=== PATIENT | female | born 1970 ===

== ENCOUNTER → 2020-12-18 | Outpatient (REF) ==
--- NOTE | 2020-12-19 01:51 | REPPI ---
INDICATION: DISABILITY DIANGOSIS DETERMINATION COMPARISON: None. TECHNIQUE: AP, lateral, coned-down views of the lumbar spine. FINDINGS: Three views of the lumbosacral spine demonstrate satisfactory alignment and lordosis without acute fracture / compression injury or subluxation. Endplate sclerosis, disc space narrowing, and facet hypertrophy noted at L5-S1. No further significant degenerative changes are appreciated. IMPRESSION: 1. No acute fracture / compression injury or subluxation. 2. Early moderate degenerative changes at L5-S1. <Electronically signed by Eyad Kearns > 12/19/20 0148
== END ==
LOC: M PLAIMG 13:26
PROVIDERS: ATTEND Internal Medicine
DX: Z02.71 Encounter for disability determination (principal)